=== PATIENT | female | born 1950 | race Caucasian/White ===

== ENCOUNTER → 2016-04-14 | Outpatient (CLI) | payer OTHER, BC ==
--- NOTE | 2016-04-14 11:55 | US ---
Complete Retroperitoneal Ultrasound History: Elevated creatinine. Comparison: None available. Findings: The right kidney measures 9.5 x 4.1 x 5.1 cm and the left kidney measures 9.2 x 6.1 x 4.9 c m. The kidneys have normal echotexture, cortical thickness, and contour without pelvicaliectasis. Pro minent extrarenal pelvis is noted on the right. The bladder is normal. Bilateral ureteral jets are present. Prevoid bladder volume is 233 mL. Postv oid bladder volume is 4 mL. Impression: Normal renal ultrasound.
== END ==
LOC: FIMAGING 09:18
PROVIDERS: ATTEND Internal Medicine Nephrology
DX: R79.89 Other specified abnormal findings of blood chemistry (principal)

== ENCOUNTER → 2016-05-13 | Outpatient (CLI) | payer OTHER, BC ==
--- NOTE | 2016-05-13 12:35 | DX ---
PA and lateral chest. Clinical History: Dyspnea and cough. Comparison Study: CT chest July 08, 2015. Findings: Patchy infiltrates are present in the lower lobes bilaterally compatible with pneumonia, ri ght greater than left. Heart size is normal. No pleural effusion.. Degenerative changes are present in the mid thoracic spine.. Impression: Bilateral lower lobe pneumonia, right greater than left.
== END ==
LOC: GIMAGING 11:58
PROVIDERS: ATTEND Nurse Practitioner Family
DX: J18.9 Pneumonia, unspecified organism (principal)
CPT/HCPCS: 71020-PO

== ENCOUNTER → 2016-12-14 | Outpatient (CLI) | payer OTHER, BC | LOC: FIMAGING 11:50 | PROVIDERS: ATTEND Internal Medicine Nephrology | DX: R22.43 Localized swelling, mass and lump, lower limb, bilateral (principal); M71.22 Synovial cyst of popliteal space [Baker], left knee; N18.3 Chronic kidney disease, stage 3 (moderate) ==

== ENCOUNTER 2016-12-17 14:10 | Emergency (ER) | payer OTHER, BC ==
[2016-12-17 15:12] VITALS: RESP 16; TEMP 98.2
--- NOTE | 2016-12-17 16:16 | EDPHY ---
HPI/HX/ROS/PE/MDM Narrative: CHIEF COMPLAINT: Bilateral foot swelling HPI: The patient is a 67 y/o female, with a history of myelodysplastic syndrome , arriving with her complaining of worsening bilateral foot swelling over the last 3 weeks. The swelling is worse in her left leg and is progressing up both legs and more recently began appearing in her hands. She has associated pain around both ankles that is localized more to the medial aspect. Her pain is aggravated with palpation and movement. She notes the swelling is worse in the morning. She had bilateral lower extremity ultrasounds on 12/14/16, 3 days ago, to evaluate her symptoms. Her ultrasounds showed a left Hearn's cyst, but were otherwise unremarkable. She also had normal labs at that time. She denies fever, noticeable dyspnea, chest pain, or other symptoms. She notes she changed antidepressants 4 weeks ago; spoke with prescribing provider who did not see connection between new medication and her symptoms. REVIEW OF SYSTEMS: Aside from elements discussed in the HPI, a comprehensive 10-point review of systems was reviewed and is negative. PMH: Carpal tunnel syndrome, depression, myelodysplastic syndrome, TIA 2010, unclear if she still has hyperlipidemia but continues to be on statin SOCIAL HISTORY: at bedside. 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 ENT:Eyes are normal to inspection. ENT inspection normal. Neck: Normal inspection. Full range of motion. Respiratory:No respiratory distress. Breath sounds normal bilaterally. Cardiovascular: Regular rate and rhythm. Strong peripheral pulses. Normal cap refill. Abdomen:The abdomen is nontender to palpation. There are no peritoneal signs. Back: Normal to inspection. No tenderness to palpation. Skin: Normal color. No rash. Warm and dry. Extremities: Diffuse swelling of both feet, 1+ pitting edema worse on left than right, otherwise normal extremity appearance with full ROM Neuro: Oriented x3. Normal motor function. Normal sensory function. ED Course: IV established. Labs drawn. 1754: Reassessed patient and discussed work up. Labs are unremarkable. She feels comfortable going home and following up as an outpatient with her PCP next week. Return precautions discussed. MDM: This patient presents with diffuse bilateral peripheral edema of unknown etiology. Based on recent US for same issue, there is no evidence for DVT. I considered CHF, liver disease and kidney disease, but the patient's lab results do not support any of these diagnoses. The patient recently started a new psychiatric med, but edema is not listed as one of the reported adverse events. I think the patient is safe for outpatient workup. - Data Points Laboratory Results: Laboratory Results 12/17/16 16:40 12/17/16 16:40 12/17/16 12/17/16 16:40 16:40 WBC 3.56 10^3/uL L 10^3/uL (3.80-9.50) RBC 3.65 10^6/uL L 10^6/uL (4.18-5.33) Hgb 12.6 g/dL g/dL (12.6-16.3) Hct 38.6 % % (38.0-47.0) MCV 105.8 fL H fL (81.5-99.8) MCH 34.5 pg H pg (27.9-34.1) MCHC 32.6 g/dL g/dL (32.4-36.7) RDW 13.7 % % (11.5-15.2) Plt Count 140 10^3/uL L 10^3/uL (150-400) MPV 12.0 fL H fL (8.7-11.7) Neut % (Auto) 42.4 % % (39.3-74.2) Lymph % (Auto) 35.7 % % (15.0-45.0) Citrus % (Auto) 4.8 % % (4.5-13.0) Eos % (Auto) 15.4 % H % (0.6-7.6) Baso % (Auto) 1.4 % % (0.3-1.7) Nucleat RBC Rel Count 0.0 % % (0.0-0.2) Absolute Neuts (auto) 1.51 10^3/uL L 10^3/uL (1.70-6.50) Absolute Lymphs (auto) 1.27 10^3/uL 10^3/uL (1.00-3.00) Absolute Monos (auto) 0.17 10^3/uL L 10^3/uL (0.30-0.80) Absolute Eos (auto) 0.55 10^3/uL H 10^3/uL (0.03-0.40) Absolute Basos (auto) 0.05 10^3/uL 10^3/uL (0.02-0.10) Absolute Nucleated RBC 0.00 10^3/uL 10^3/uL (0-0.01) Immature Gran % 0.3 % % (0.0-1.1) Immature Gran # 0.01 10^3/uL 10^3/uL (0.00-0.10) Sodium 141 mEq/L mEq/L (134-144) Potassium 4.6 mEq/L mEq/L (3.5-5.2) Chloride 104 mEq/L mEq/L (97-110) Carbon Dioxide 26 mEq/l mEq/l (22-31) Anion Gap 11 mEq/L mEq/L (8-16) BUN 20 mg/dL mg/dL (7-23) Creatinine 1.1 mg/dL H mg/dL (0.6-1.0) Estimated GFR 49 Glucose 87 mg/dL mg/dL (70-100) Calcium 9.5 mg/dL mg/dL (8.5-10.4) Total Bilirubin 0.4 mg/dL mg/dL (0.1-1.4) Conjugated Bilirubin 0.3 mg/dL mg/dL (0.0-0.5) Unconjugated Bilirubin 0.1 mg/dL mg/dL (0.0-1.1) AST 47 IU/L H IU/L (14-46) ALT 49 IU/L IU/L (9-52) Alkaline Phosphatase 54 IU/L IU/L (38-126) Troponin I < 0.012 ng/mL ng/mL (0.000-0.034) NT-Pro-B Natriuret Pep 171 pg/mL H pg/mL (0-125) Total Protein 6.8 g/dL g/dL (6.3-8.2) Albumin 4.1 g/dL g/dL (3.5-5.0) TSH 0.657 uIU/mL uIU/mL (0.465-4.680) General Time Seen by Provider: 12/17/16 16:06 Initial Vital Signs: Initial Vital Signs Temperature (C) 36.8 C 12/17/16 15:09 Heart Rate 75 12/17/16 15:09 Respiratory Rate 16 12/17/16 15:09 Blood Pressure 134/75 H 09/15/17 15:09 O2 Sat (%) 98 12/17/16 15:09 O2 Delivery Mode Room Air Allergies/Adverse Reactions: Penicillins Allergy (Verified 12/17/16 15:08) Home Medications: Medication Instructions Recorded Atorvastatin Calcium 12/17/16 Pristiq 12/17/16 Synthroid 12/17/16 Valacyclovir 12/17/16 Departure - Departure Disposition: Home, Routine, Self-Care Clinical Impression: Peripheral edema Condition: Good Instructions: Leg Edema (ED), Edema (ED) Additional Instructions: Follow up with your primary care provider on Tuesday. Return to the ED for severe pain, weakness, numbness, or other worsening of condition. Referrals: Wesley Foreman MD [[facility] [place] Primary [place] Provider] - As per Instructions Sherri Liriano MD [Medical Doctor] - As per Instructions Report Scribed for: Jose Polanco Report Scribed by: Abby Lopez Date of Report: 12/17/16 Time of Report: 16:16 Physician Review and Approval Statement: Portions of this note were transcribed by an ED scribe. I personally performed the history, physical exam, and medical decision making; and confirm the accuracy of the information in the transcribed note.
[2016-12-17 16:49] LABS: % IMMATURE GRANULYOCYTES 0.3 % (0.0-1.1); ABSOLUTE IMMATURE GRANULOCYTES 0.01 10^3/uL (0.00-0.10); ADD DIFF? NO; ADD MORPH? NO; ADD SCAN? NO; ATYPICAL LYMPHOCYTE FLAG 30 (0-99); FRAGMENT RBC FLAG 0 (0-99); HEMATOCRIT 38.6 % (38.0-47.0); HEMOGLOBIN 12.6 g/dL (12.6-16.3); LEFT SHIFT FLG 0 (0-99); LIPEMIA HEMOLYSIS FLAG 80 (0-99); MEAN CELL HEMOGLOBIN 34.5 pg (27.9-34.1); MEAN CELL HEMOGLOBIN CONCENTR. 32.6 g/dL (32.4-36.7); MEAN CELL VOLUME 105.8 fL (81.5-99.8); PLATELET CLUMPS FLAG 0 (0-99); PLATELET COUNT 140 10^3/uL (150-400); RED BLOOD CELL COUNT 3.65 10^6/uL (4.18-5.33); RED CELL DISTRIBUTION WIDTH 13.7 % (11.5-15.2)
[2016-12-17 17:17] LABS: ALANINE AMINOTRANSFERASE 49 IU/L (9-52); ALBUMIN 4.1 g/dL (3.5-5.0); ALKALINE PHOSPHATASE 54 IU/L (38-126); ANION GAP 11 mEq/L (8-16); ASPARTATE AMINOTRANSFERASE 47 IU/L (14-46); BILIRUBIN,TOTAL 0.4 mg/dL (0.1-1.4); BILIRUBIN-CONJUGATED 0.3 mg/dL (0.0-0.5); BILIRUBIN-UNCONJUGATED 0.1 mg/dL (0.0-1.1); CALCIUM 9.5 mg/dL (8.5-10.4); CARBON DIOXIDE 26 mEq/l (22-31); CHLORIDE 104 mEq/L (97-110); CREATININE 1.1 mg/dL (0.6-1.0); GLOMERULAR FILTRATION RATE 49; GLUCOSE 87 mg/dL (70-100); POTASSIUM 4.6 mEq/L (3.5-5.2); SODIUM 141 mEq/L (134-144); TOTAL PROTEIN 6.8 g/dL (6.3-8.2)
[2016-12-17 17:28] LABS: TROPONIN I < 0.012 ng/mL (0.000-0.034)
[2016-12-17 18:18] VITALS: BP 124/73; PULSE 73; O2SAT 100
== END 2016-12-17 18:17 | disposition home or self-care (01) ==
DX: R60.0 Localized edema (principal)

== ENCOUNTER → 2017-01-18 | Outpatient (CLI) | payer OTHER, BC | LOC: GIMAGING 17:19 | PROVIDERS: ATTEND Registered Nurse | DX: R05 Cough (principal) | CPT/HCPCS: 71020-PO ==

== ENCOUNTER → 2018-03-07 | Outpatient (CLI) | payer OTHER, BC | LOC: FIMAGING 11:17 | PROVIDERS: ATTEND Internal Medicine | DX: Z12.31 Encounter for screening mammogram for malignant neoplasm of breast (principal); Z13.820 Encounter for screening for osteoporosis; M85.89 Other specified disorders of bone density and structure, multiple sites; E06.3 Autoimmune thyroiditis; Z78.0 Asymptomatic menopausal state ==

== ENCOUNTER 2018-10-01 17:23 | Emergency (ER) | payer OTHER, BC | END 2018-10-01 19:14 | disposition home or self-care (01) ==